=== PATIENT | female | born 1970 | race Hispanic/Latino ===

== ENCOUNTER 2018-07-19 23:53 | Emergency (ER) | payer SELFPAY ==
[2018-07-20 00:20] VITALS: BMI 21.4
--- NOTE | 2018-07-20 00:57 | ED PDOC ---
Arrival/HPI - General Chief Complaint: Alcohol Ingestion Time Seen by Provider: 07/20/18 00:04 Historian: Patient - History of Present Illness Narrative History of Present Illness (Text): 07/20/18 00:56 Ese Valencia, brought in initially brought in as a Chrystal Wan, is a 48 year old female brought in by EMS for public intoxication. Patient was found outside inebriated, admits to drinking alcohol. Limited HPI and ROS secondary to patient's alcohol intoxication. Symptom Onset: Gradual Symptom Course: Unchanged Activities at Onset: Light Context: Street Past Medical History - Provider Review Nursing Documentation Reviewed: Yes - Psychiatric Hx Substance Use: No Family/Social History - Physician Review Nursing Documentation Reviewed: Yes Family/Social History: Unknown Family HX Smoking Status: Unknown If Ever Smoked Hx Alcohol Use: No Hx Substance Use: No Allergies/Home Meds Allergies/Adverse Reactions: Allergies Unobtainable Allergy (Verified 07/20/18 00:20) Home Medications: Home Meds Medication Instructions Recorded Confirmed Unobtainable 07/20/18 07/20/18 Review of Systems - Review of Systems Systems not reviewed;Unavailable: Altered Mental Status Physical Exam Vital Signs Reviewed: Yes Vital Signs Temp Pulse Resp BP Pulse Ox 07/20/18 00:20 98.5 F 82 16 132/72 98 Temperature: Afebrile Blood Pressure: Normal Pulse: Regular Respiratory Rate: Normal Appearance: Positive for: Well-Appearing, Non-Toxic, Comfortable Mental Status: Positive for: other (Intoxicated) - Systems Exam Head: Present: Atraumatic, Normocephalic Pupils: Present: PERRL Extroacular Muscles: Present: EOMI Conjunctiva: Present: Normal Mouth: Present: Moist Mucous Membranes Neck: Present: Normal Range of Motion Respiratory/Chest: Present: Clear to Auscultation, Good Air Exchange. No: Respiratory Distress, Accessory Muscle Use Cardiovascular: Present: Regular Rate and Rhythm, Normal S1, S2. No: Murmurs Abdomen: No: Tenderness, Distention, Peritoneal Signs Back: Present: Normal Inspection Upper Extremity: Present: Normal Inspection. No: Cyanosis, Edema Lower Extremity: Present: Normal Inspection. No: Edema Neurological: Present: GCS=15, CN II-XII Intact Skin: Present: Warm, Dry, Normal Color. No: Rashes Psychiatric: Present: Intoxicated Medical Decision Making ED Course and Treatment: 07/20/18 00:56 Impression: 48 year old female brought in for alcohol intoxication. Differential Diagnosis included but are not limited to: alcohol intoxication Plan: -- Reassess and disposition Progress Notes: 07/20/18 06:46 On reassessment, pt is awake, alert, and in no acute distress. Clinically sober, ambulating with steady gait. Pt stable for d/c. - Scribe Statement The provider has reviewed the documentation as recorded by the Scribguerda Cavanaugh All medical record entries made by the Scribe were at my direction and personally dictated by me. I have reviewed the chart and agree that the record accurately reflects my personal performance of the history, physical exam, medical decision making, and the department course for this patient. I have also personally directed, reviewed, and agree with the discharge instructions and disposition. Disposition/Present on Arrival - Present on Arrival Any Indicators Present on Arrival: No History of DVT/PE: No History of Uncontrolled Diabetes: No Urinary Catheter: No History of Decub. Ulcer: No History Surgical Site Infection Following: None - Disposition Have Diagnosis and Disposition been Completed?: Yes Diagnosis: Alcohol intoxication Disposition: HOME/ ROUTINE Disposition Time: 06:44 Patient Plan: Discharge Condition: GOOD Referrals: Alcoholics Anonymous [Outside] - Follow up with primary Forms: [employer] (Thai)
[2018-07-20 05:37] VITALS: RESP 18; O2SAT 97
[2018-07-20 07:30] VITALS: BP 112/70; PULSE 92; TEMP 98.2
== END 2018-07-20 06:55 | disposition home or self-care (01) ==
LOC: EDBD → ED 23:53
DX: F10.129 Alcohol abuse with intoxication, unspecified (principal)